=== PATIENT | male | born 1990 | race Caucasian/White ===

== ENCOUNTER 2019-11-01 10:53 | Emergency (ER) | payer SELFPAY ==
[~2019-11-01] VITALS: Ht 167.6 cm; Wt 93.0 kg
--- NOTE | 2019-11-01 11:28 | NUR ---
NA X 1
[2019-11-01 11:52] VITALS: BP 117/73
[2019-11-01] MEDS ORDERED: LIDOCAINE-MPF 1%, 5ML ONE (12:47)
[2019-11-01] MEDS ORDERED: LIDOCAINE-MPF 1%, 5ML INFIL ONE (13:00)
== END 2019-11-01 13:40 | disposition home or self-care (01) ==
LOC: ED 13:34
DX: S60.552A Superficial foreign body of left hand, initial encounter (principal); L02.512 Cutaneous abscess of left hand; F17.200 Nicotine dependence, unspecified, uncomplicated; X58.XXXA Exposure to other specified factors, initial encounter; Y93.89 Activity, other specified; Y92.89 Other specified places as the place of occurrence of the external cause; Y99.8 Other external cause status
CPT/HCPCS: 10120; 99285

== ENCOUNTER 2021-04-22 15:10 | Emergency (ER) | payer OTHER ==
[~2021-04-22] VITALS: Ht 172.7 cm; Wt 90.0 kg
--- NOTE | 2021-04-22 15:50 | NUR ---
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
[2021-04-22 16:39] VITALS: BP 136/95
== END 2021-04-22 16:51 | disposition home or self-care (01) ==
LOC: ED 15:40
DX: R04.2 Hemoptysis (principal); R07.89 Other chest pain
CPT/HCPCS: 71046; 99283